=== PATIENT | male | born 1995 | race Caucasian/White ===

== ENCOUNTER 2017-11-26 00:09 | Emergency (ER) | payer OTHER ==
[~2017-11-26] VITALS: Ht 180.3 cm; Wt 72.6 kg
[~2017-11-26 00:09] MED LIST: NORCO 5-325 TA1 EACH PO; TAMSULOSIN HCL0.4 M1 PO
[2017-11-26 00:38] LABS: ABSOLUTE NEUTROPHILS 6.5 thou/uL (1.4-8.2); BASOPHILS 0.9 % (0.0-2.0); EOSINOPHILS 5.8 % (0.0-3.0); HEMATOCRIT 40.9 % (42.0-52.0); HEMOGLOBIN 13.8 gm/dL (14.0-18.0); LYMPHOCYTES 32.8 % (24.0-44.0); MCH 29.6 pg (26.0-34.0); MCHC 33.7 g/dL (28.0-37.0); MONOCYTES 6.1 % (1.0-8.0); PLATELET COUNT 244 thou/uL (150-400); POLYS 54.4 % (36.0-66.0); RBC 4.65 mil/uL (4.50-6.00); RDW 14.3 % (10.5-14.5)
[2017-11-26 00:44] LABS: CALCIUM 9.4 mg/dL (8.5-10.1); CREATININE 1.1 mg/dL (0.7-1.3); POTASSIUM 3.9 mmol/L (3.5-5.1)
[2017-11-26 00:50] LABS: ALBUMIN 4.3 g/dL (3.4-5.0); TOTAL BILIRUBIN 0.3 mg/dL (<0.1-1.0)
[2017-11-26] MEDS ORDERED: FLOMAX0.4 MG PO (02:37)
[2017-11-26] MEDS ORDERED: TORADOL 10 MG T10 MG PO (02:37)
[2017-11-26] MEDS ORDERED: NORCO 5-325 TA1 EACH PO (02:37)
[2017-11-26 03:03] VITALS: BP 122/71
== END 2017-11-26 03:03 | disposition home or self-care (01) ==
LOC: ER 00:09
PROVIDERS: Emergency Medicine
DX: N21.1 Calculus in urethra (principal); K04.7 Periapical abscess without sinus; R19.7 Diarrhea, unspecified; J45.909 Unspecified asthma, uncomplicated